=== PATIENT | female | born 1995 | race African-American/Black ===

== ENCOUNTER 2024-05-18 15:36 | Emergency (ER) | payer OTHER ==
[~2024-05-18] VITALS: Ht 167.6 cm; Wt 136.0 kg
[2024-05-18 15:45] VITALS: O2SAT 99
[2024-05-18 15:55] VITALS: BP 124/78; PULSE 100; RESP 16; TEMP 36.9; O2SAT 98
[2024-05-18 20:43] LABS: CLARITY URINE CLEAR (CLEAR); COLOR URINE YELLOW (YELLOW); GLUCOSE URINE NEGATIVE (NEGATIVE); KETONES URINE TRACE (NEGATIVE); LEUKOCYTE ESTERASE URINE NEGATIVE (NEGATIVE); NITRITE URINE NEGATIVE (NEGATIVE); OCCULT BLOOD URINE NEGATIVE (NEGATIVE); PH URINE 6.5 (4.5-8.0); PROTEIN URINE NEGATIVE (NEGATIVE); SPECIFIC GRAVITY URINE 1.031 (1.005-1.030)
== END 2024-05-18 21:30 | disposition home or self-care (01) ==
LOC: ER 15:36
DX: O9A.212 Injury, poisoning and certain other consequences of external causes complicating pregnancy, second trimester (principal); Z3A.19 19 weeks gestation of pregnancy
CPT/HCPCS: 76705; 76815; 81003; 99284